=== PATIENT | male | born 1945 | race Caucasian/White ===

== ENCOUNTER 2021-02-19 10:06 | Emergency (ER) | payer MEDICARE, SELFPAY ==
--- NOTE | 2021-02-19 10:12 | DI.RAD.S_ITS ---
PROCEDURE: XR CHEST 1V INDICATIONS: chest pain TECHNIQUE: One view of the chest was acquired. COMPARISON: None. FINDINGS: Surgical changes and devices: None. Lungs and pleura: Lungs are clear. No pleural effusions or pneumothorax. Mediastinum: Mediastinal contours appear normal. Heart size is normal. Bones and chest wall: No suspicious bony lesions. Overlying soft tissues appear unremarkable. IMPRESSION: No acute pulmonary process. Dictated by: Destiny Fischer M.D. on 02/19/2021 at 10:34 Approved by: Destiny Fischer M.D. on 02/19/2021 at 10:35
--- NOTE | 2021-02-19 10:21 | ED.CHESTPAIN ---
HPI - Chest Pain General Chief Complaint: Chest Pain Stated Complaint: chest pain/cannot walk to far Time Seen by Provider: 02/19/21 10:21 Source: patient Mode of arrival: Ambulatory Limitations: no limitations History of Present Illness HPI narrative: This is a 75-year-old male comes emergency department complaint of chest pain/pressure. Patient has had increasing chest pain in past week he was seen in outside facility about a week ago, started on aspirin daily. He does not take any other regular medications. He denies any prior surgeries. No allergies to medications. Patient has felt diaphoretic, he has had some mild nausea. He denies any shortness of breath currently. He denies any radiation other to his shoulder. Patient has not had any syncope. Patient has not had any prior cardiac stents or interventions he is accompanied here by his today. Related Data Allergies Allergy/AdvReac Type Severity Reaction Status Date / Time No Known Drug Allergies Allergy Verified 02/19/21 10:34 Review of Systems Review of Systems ROS Unobtainable: All systems reviewed & are unremarkable except as noted in HPI and below Patient History Social History Smoking Status: Current every day smoker Exam Narrative Exam Narrative: GENERAL: Alert and oriented x three, well-nourished male in moderate distress HEENT: Head normocephalic, atraumatic, EOMI, pupils reactive, face symmetric, moist mucous membranes NECK: Supple, full range of motion CARDIOVASCULAR: Regular rate and rhythm without murmurs, rubs or gallops. RESPIRATORY: Breath sounds equal bilaterally, no wheezes rales or rhonchi. ABDOMEN: Soft, nontender. Normoactive bowel sounds all 4 quadrants. No guarding or rebound, rigidity, no mass, no pulsatile bruit. : No CVA tenderness EXTREMITIES: Normal range of motion, no clubbing or edema. Neurovascularly intact NEUROLOGICAL: Cranial nerves II through XII grossly intact. Moving all extremities SKIN: Warm, dry, no petechiae, no rashes or lesions. Initial Vital Signs Initial Vital Signs: Vital Signs Pulse Rate 99 H 02/19/21 10:35 Respiratory Rate 24 02/19/21 10:35 Pulse Oximetry 99 02/19/21 10:35 Course Orders Ordered: ED Orders 02/19/21 10:12 XR chest 1V Stat COVID19 - ADMIT ([employer] swab/PCR) Stat EKG-12 Lead Stat 02/19/21 10:20 Complete Blood Count AUTO DIFF Stat Comprehensive Metabolic Panel Stat Lipase Stat Magnesium Stat NT-proBNP (BNP-Adult 18+) Stat Troponin & CK Cardiac Panel Stat 02/19/21 10:35 COVID19 -Nasal swab/Pre-Proc Stat Heparin Sodium/Dextrose (Heparin Drip) 25,000 unit in 500 mls @ 19.44 mls/hr IV CONT YULY; Protocol Last Admin: 02/19/21 10:37 Dose: 12 units/kg/hr, 19.44 mls/hr Documented by: Nitroglycerin (Nitroglycerin) 50 mg in 250 mls @ 1.5 mls/hr IV TITRATE YULY; Protocol Last Admin: 02/19/21 10:37 Dose: 5 mcg/min, 1.5 mls/hr Documented by: Discontinued Medications Aspirin (Aspirin 81 Mg Chew Tab) 324 mg PO NOW ONE Stop: 02/19/21 10:29 Last Admin: 02/19/21 10:35 Dose: 324 mg Documented by: Reevaluation(s) Reevaluation #1: Patient is having some improvement in his chest pain after nitro sublingual and drip was initiated. Time: 10:42 Consultations Consultation #1: Dr. Wagner at [facility] accepts for transfer. Time: 10:25 Vital Signs Vital signs: Vital Signs - 8 hr 02/19/21 10:35 02/19/21 10:42 Temperature 97.6 F Pulse Rate 99 H 104 H Respiratory Rate 24 27 H Blood Pressure 151/89 H Pulse Oximetry 99 99 MDM - Chest Pain Lab Data Attestation: I reviewed the patient's lab results. Result diagrams: 02/19/21 10:20 02/19/21 10:20 Labs: Lab Results 02/19/21 02/19/21 Range/Units 10:20 10:20 WBC 8.1 (4.5-11.0) X10^3/uL RBC 5.54 (4.5-5.9) X10^6/uL Hgb 16.7 (13.5-17.5) g/dL Hct 49.1 (41-53) % MCV 88.7 (80-100) fL MCH 30.1 (26-34) PG MCHC 33.9 (30-36) % RDW 12.4 (11.6-14.8) % Plt Count 289 (150-400) X10^3/uL Neut % (Auto) 48.0 L (50-75) % Lymph % (Auto) 42.1 H (25-40) % Cloud % (Auto) 7.9 (3-14) % Eos % (Auto) 1.2 L (2-4) % Baso % (Auto) 0.8 (0-2) % Neut # (Auto) 3900 (2783-1883) /uL Lymph # (Auto) 3400 (1078-9532) /uL Cloud # (Auto) 600 (0-900) /uL Eos # (Auto) 100 (0-450) /uL Baso # (Auto) 100 (0-100) /uL Sodium 138 (137-145) mmol/L Potassium 4.3 (3.4-5.1) mmol/L Chloride 100 (98-107) mmol/L Carbon Dioxide 28 (22-32) mmol/L BUN 24 H (9-20) mg/dL Creatinine 1.22 (0.66-1.25) mg/dL Estimated GFR 58.2 L (>60) mL/min BUN/Creatinine Ratio 19.7 (6-22) Glucose 108 (80-110) mg/dL Calcium 9.7 (8.4-10.2) mg/dL Magnesium 2.6 H (1.6-2.3) mg/dL Total Bilirubin 0.5 (0.2-1.3) mg/dL AST 26 (17-59) IU/L ALT 21 (<50) IU/L Alkaline Phosphatase 61 (38-126) U/L Total Creatine Kinase 41 L (55-170) U/L CK-MB (CK-2) TNP CK-MB (CK-2) Rel Index TNP Total Protein 8.6 H (6.3-8.2) g/dL Albumin 5.0 (3.5-5.0) g/dL Globulin 3.6 (1.7-4.1) g/dL Albumin/Globulin Ratio 1.4 (1.0-2.8) Lipase 31 (23-300) U/L Imaging Data Chest x-ray: Attestation: I personally reviewed and interpreted this imaging study as follows: My Impression: Mediastinal large minute. Patient has some granulomatous change. No free air. No pneumothorax. ECG Data Attestation: I personally reviewed and interpreted this ECG as follows: Prior ECG tracings: not available for review Interpretation: EKG shows elevation in V2 as well as V3. Some J-point elevation 4 5. With reciprocal changes in 2 3 AVF MDM Narrative Medical decision making narrative: 75-year-old male coming in with complaint of chest pain which has been intermittent over the last week. Patient has ST elevations EKG. Patient appears pale and somewhat diaphoretic. He denies any shortness of breath. He has had some radiation to his shoulder. Chest x-ray is negative with no mediastinal widening. Labs to this point show a creatinine 1.22, troponin is pending, COVID is pending. Hemoglobin is normal. Patient was accepted at [facility] for transfer by ED physician Dr. Wagner. Patient was having improvement with nitro drip and he received aspirin 324mg, nitro and heparin 5000 units along with drip. Critical Care Time Critical Care Time Critical Care Time: Yes Total Critical Care Time: 37 Attestation: The high probability of a clinically significant, sudden or life threatening deterioration of the [] system(s) required my full and direct attention, intervention and personal management. The aggregate critical care time was [] minutes. This time is in addition to time spent performing reported procedures but includes the following: [x] Data Review and interpretation x] Patient assessment and monitoring of vital signs [x] Documentation xMedication orders and management Discharge Plan Departure Patient Disposition: General Acute Hospital Clinical Impression: ST elevation (STEMI) myocardial infarction
[2021-02-19 10:31] LABS: Add Manual Diff / Slide Review NO; Basophils Absolute Auto 100 /uL (0-100); Basophils Percent Auto 0.8 % (0-2); Eosinophils Absolute Auto 100 /uL (0-450); Eosinophils Percent Auto 1.2 % (2-4); Hematocrit 49.1 % (41-53); Hemoglobin 16.7 g/dL (13.5-17.5); Lymphocytes Absolute Auto 3400 /uL (1100-4500); Lymphocytes Percent Auto 42.1 % (25-40); Mean Corpuscular HGB Conc 33.9 % (30-36); Mean Corpuscular Hemoglobin 30.1 PG (26-34); Mean Corpuscular Volume 88.7 fL (80-100); Monocytes Absolute Auto 600 /uL (0-900); Monocytes Percent Auto 7.9 % (3-14); Neutrophils Absolute Auto 3900 /uL (1500-7000); Platelet Count 289 X10^3/uL (150-400); Red Blood Cell Count 5.54 X10^6/uL (4.5-5.9); Red Cell Distribution Width 12.4 % (11.6-14.8); White Blood Cell Count 8.1 X10^3/uL (4.5-11.0)
[2021-02-19 10:35] VITALS: PULSE 99; RESP 24; O2SAT 99
[2021-02-19] MEDS: ASPIRIN 81 MG CHEW TAB 324 MG PO (10:35)
[2021-02-19] MEDS: HEPARIN 5,000 UNIT/ML VIAL 5000 UNIT (10:36)
[2021-02-19] MEDS: HEPARIN DRIP 25,000 UNIT/500 ML IV.SOLN 19.44 UNIT IV (10:37)
[2021-02-19] MEDS: NITROGLYCERIN 50 MG/250 ML INFUS..BTL IV (10:37)
[2021-02-19 10:41] LABS: Alanine Aminotransferase 21 IU/L (<50); Albumin Globulin Ratio 1.4 (1.0-2.8); Alkaline Phosphatase 61 U/L (38-126); Aspartate Aminotransferase 26 IU/L (17-59); BUN Creatinine Ratio 19.7 (6-22); Bilirubin Total 0.5 mg/dL (0.2-1.3); Blood Urea Nitrogen 24 mg/dL (9-20); Calcium 9.7 mg/dL (8.4-10.2); Carbon Dioxide 28 mmol/L (22-32); Chloride 100 mmol/L (98-107); Creatine Kinase 41 U/L (55-170); Estimated Glomerular Filt Rate 58.2 mL/min (>60); Globulin 3.6 g/dL (1.7-4.1); Glucose 108 mg/dL (80-110); HEMOLYSIS 31 (0-50); Lipase 31 U/L (23-300); Magnesium 2.6 mg/dL (1.6-2.3); Potassium 4.3 mmol/L (3.4-5.1); Sodium 138 mmol/L (137-145); Total Protein 8.6 g/dL (6.3-8.2)
[2021-02-19 10:42] VITALS: BP 151/89; PULSE 103; PULSE 104; RESP 27; RESP 31; TEMP 36.4; O2SAT 99; BMI 24.9
[2021-02-19 10:45] VITALS: BP 148/90; PULSE 104; RESP 33; O2SAT 97
[2021-02-19 10:53] LABS: NT-proBNP (BNP-Adult 18+) 160 pg/mL (<125); Troponin I 0.013 ng/mL (0.01-0.034)
[2021-02-19] MEDS: NITROGLYCERIN 0.4 MG SL TAB SL (10:56)
[2021-02-19 10:57] VITALS: BP 151/89; PULSE 105; RESP 20; O2SAT 98
[2021-02-19 11:03] LABS: COVID19 -Nasal RAPID Negative (Negative)
--- NOTE | 2021-02-22 09:53 | PC.NURSE ---
Late Entry- Patient was transported to [facility] with Heparin drip and Nitroglycerine drip running.
== END 2021-02-19 11:00 | disposition short-term general hospital (02) ==
PROVIDERS: Emergency Provider Emergency Medicine
DX: I21.3 ST elevation (STEMI) myocardial infarction of unspecified site (principal); R07.9 Chest pain, unspecified; Z20.822 Contact with and (suspected) exposure to COVID-19
CPT/HCPCS: 71045; 80053; 82550; 83690; 83735; 83880; 84484; 85025; 87635; 93005; 93010; 96365; 96368; 96375; 99284; 99291; C9803; J1644